=== PATIENT | female | born 1995 | race Caucasian/White ===

== ENCOUNTER → 2021-01-09 | Outpatient (CLI) | payer BC ==
[~2021-01-09] VITALS: Ht 22.9 cm; Wt 144.2 kg
[~2021-01-09] MED LIST: ACET500P24 PO; CEPH500B PO; CITA40TA14 PO; DICY20TA2 PO; ETHI1TAB18 PO; GABA300S PO; ONDA4TAB10 PO; ONDA4TAB4 PO; PANT40TA PO; PHEN12S PR; TAMS-1 PO
== END | disposition home or self-care (01) ==
LOC: DTH 15:58
PROVIDERS: ATTEND Surgery
DX: E11.9 Type 2 diabetes mellitus without complications (principal); E66.01 Morbid (severe) obesity due to excess calories; K76.9 Liver disease, unspecified
CPT/HCPCS: 97802

== ENCOUNTER → 2021-02-01 | Outpatient (CLI) | payer BC, OTHER | END | disposition home or self-care (01) | LOC: EDBD → EDUNIT# 15:00 → DTH 15:57 | PROVIDERS: ATTEND Surgery | DX: E66.01 Morbid (severe) obesity due to excess calories (principal) | CPT/HCPCS: 97803 ==

== ENCOUNTER 2021-02-15 08:31 | Day surgery (SDC) | payer BC, OTHER ==
[2021-02-15] VITALS (8 sets, daily range): BP systolic 105–132; BP diastolic 65–185
[~2021-02-15 08:31] MED LIST changes: -ACET500P24 PO; -CEPH500B PO; -DICY20TA2 PO; -GABA300S PO; -ONDA4TAB10 PO; -ONDA4TAB4 PO; -PANT40TA PO; -PHEN12S PR; +SODIUM CHLORIDE 0.9% 1000ML 1,000 ML IV ONE; -TAMS-1 PO
[2021-02-15] MEDS ORDERED: PROPOFOL 10 MG/ML 20ML VIAL IV ONE ×2 (11:01)
== END 2021-02-15 11:50 | disposition home or self-care (01) ==
LOC: ENDO 08:31 → DAH 08:31 → ENDO 11:50
PROVIDERS: ATTEND Surgery
DX: K21.9 Gastro-esophageal reflux disease without esophagitis (principal); F41.9 Anxiety disorder, unspecified; E66.01 Morbid (severe) obesity due to excess calories; F32.9 Major depressive disorder, single episode, unspecified; Z83.3 Family history of diabetes mellitus; Z82.49 Family history of ischemic heart disease and other diseases of the circulatory system; Z68.43 Body mass index [BMI] 50.0-59.9, adult; Z98.84 Bariatric surgery status
CPT/HCPCS: 43235; 81025; A4215; A4221; A4222; A4223; A4620; A4663; J2704 ×2; J7030

== ENCOUNTER → 2021-02-26 | Outpatient (CLI) | payer BC ==
[~2021-02-26] MED LIST changes: -SODIUM CHLORIDE 0.9% 1000ML 1,000 ML IV ONE
== END | disposition home or self-care (01) ==
LOC: EDBD → EDUNIT# 15:00 → DTH 15:55
PROVIDERS: ATTEND Surgery
DX: E66.01 Morbid (severe) obesity due to excess calories (principal)
CPT/HCPCS: 97803

== ENCOUNTER 2021-03-11 12:00 | Inpatient (IN) | payer OTHER ==
[~2021-03-11] VITALS: Ht 175.3 cm; Wt 142.0 kg
[2021-03-11 14:22] LABS: BASOPHILS % (AUTO) 0.7 % (0.0-5.0); EOSINOPHILS % (AUTO) 1.8 % (0.0-8.0); HEMATOCRIT 42.7 % (36-48); LYMPHOCYTES % (AUTO) 26.6 % (21.0-51.0); MEAN CORPUSCULAR HEMOGLOBIN 28.1 pg (27.0-33.0); MEAN CORPUSCULAR HGB CONC 32.1 g/dL (32.0-36.0); MEAN CORPUSCULAR VOLUME 87.5 fL (79-99); MONOCYTES % (AUTO) 7.6 % (3.0-13.0); PLATELET COUNT (AUTO) 320 K/uL (130-400); RED BLOOD CELL COUNT(AUTO) 4.88 MIL/uL (4.00-5.50); RED CELL DISTRIBUTION WIDTH 14.3 % (11.0-15.5); WHITE BLOOD COUNT (AUTO) 14.1 K/uL (4.8-10.8)
[2021-03-11 14:28] LABS: CREATININE 0.7 mg/dL (0.5-1.5); POTASSIUM 4.2 mmol/L (3.5-5.1)
[2021-03-11 14:31] LABS: INR 0.97 (0.85-1.15); PROTHROMBIN TIME 10.6 SEC (9.6-11.6)
[2021-03-11 14:33] LABS: PARTIAL THROMBOPLASTIN TIME 26.8 SEC (26.3-35.5)
[2021-03-15 13:57] VITALS: BP 134/78
[2021-03-16] MEDS: CEFAZOLIN SODIUM 1 GM VIAL IVP SCH (14:15)
[2021-03-17] MEDS: CEFAZOLIN SODIUM 1 GM VIAL IVP SCH (14:15)
[2021-03-18] VITALS (25 sets, daily range): BP systolic 130–157; BP diastolic 69–95
[2021-03-18] MEDS ORDERED: NACL 0.9% 1000ML 1,000 ML IV ONE (07:13)
[2021-03-18] MEDS: CEFAZOLIN SODIUM 1 GM VIAL IVP SCH ×3 (07:20→10:20)
[2021-03-18] MEDS ORDERED: PROPOFOL 10 MG/ML 20ML VIAL IV ONE (08:28)
[2021-03-18] MEDS ORDERED: ROCURONIUM 10MG/1ML SYR 10 MG/ML ML ONE (08:28)
[2021-03-18] MEDS ORDERED: LIDOCAINE PF 100MG/5ML (2%) SYRINGE 5ML ONE (08:28)
[2021-03-18] MEDS ORDERED: SUCCINYLCHOLINE CHLORIDE 20 MG/ML 10 ML VIAL ONE (08:28)
[2021-03-18] MEDS ORDERED: MIDAZOLAM HCL 1 MG/ML 2ML VIAL ONE (08:29)
[2021-03-18] MEDS ORDERED: DEXAMETHASONE SOD PHOSPHATE 10MG/ML 1ML VIAL ONE (08:41)
[2021-03-18] MEDS ORDERED: ONDANSETRON 4MG INJ ONE (08:41)
[2021-03-18] MEDS ORDERED: FENTANYL CITRATE PF 50 MCG/1 ML 2ML VIAL ONE (08:51)
[2021-03-18] MEDS ORDERED: SCOPOLAMINE HYDROBROMIDE 1 EACH ADH..PATCH TD ONE (08:54)
[2021-03-18] MEDS ORDERED: GLYCOPYRROLATE 1 MG/5 ML SYRINGE ONE (09:15)
[2021-03-18] MEDS ORDERED: NEOSTIGMINE 5MG/5ML SYR IV ONE (09:15)
[2021-03-18] MEDS ORDERED: APAP/CODEINE 120/12MG 5ML PO PRN (09:45)
[2021-03-18] MEDS ORDERED: MORPHINE 5 MG/ML VIAL (5MG OR GREATER DOSE) IVP PRN (09:45)
[2021-03-18] MEDS ORDERED: MORPHINE 4 MG SYG IVP PRN (09:45)
[2021-03-18] MEDS ORDERED: MEPERIDINE-PF 25 MG/ML SYG ONE ×2 (09:50→10:01)
[2021-03-18] MEDS: LACTATED RINGERS 1000ML 1,000 ML IV SCH ×2 (11:39→19:45)
[2021-03-18] MEDS: ONDANSETRON 4MG INJ IVP PRN (15:18)
[2021-03-18] MEDS: KETOROLAC 30MG VIAL (30MG/ML) IV PRN ×2 (16:11→22:22)
[2021-03-18] MEDS ORDERED: FAMOTIDINE 20MG VIAL IV ONE (19:30)
[2021-03-18] MEDS: FAMOTIDINE 20MG VIAL IV SCH (22:08)
[2021-03-18] MEDS: ENOXAPARIN SODIUM 30 MG/0.3 ML SQ SCH (22:09)
[2021-03-19] MEDS: LACTATED RINGERS 1000ML 1,000 ML IV SCH ×2 (01:45→09:46)
[2021-03-19 06:35] VITALS: BP 107/67
[2021-03-19 06:36] LABS: CREATININE 0.7 mg/dL (0.5-1.5); POTASSIUM 3.8 mmol/L (3.5-5.1)
[2021-03-19 06:44] LABS: BASOPHILS % (AUTO) 0.4 % (0.0-5.0); EOSINOPHILS % (AUTO) 0.2 % (0.0-8.0); HEMATOCRIT 37.3 % (36-48); LYMPHOCYTES % (AUTO) 24.4 % (21.0-51.0); MEAN CORPUSCULAR HEMOGLOBIN 27.7 pg (27.0-33.0); MEAN CORPUSCULAR HGB CONC 32.4 g/dL (32.0-36.0); MEAN CORPUSCULAR VOLUME 85.4 fL (79-99); MONOCYTES % (AUTO) 11.4 % (3.0-13.0); NEUTROPHILS % (AUTO) 63.3 % (40.0-77.0); PLATELET COUNT (AUTO) 307 K/uL (130-400); RED BLOOD CELL COUNT(AUTO) 4.37 MIL/uL (4.00-5.50); WHITE BLOOD COUNT (AUTO) 13.7 K/uL (4.8-10.8)
[2021-03-19 08:00] VITALS: BP 109/66
[2021-03-19] MEDS: FAMOTIDINE 20MG VIAL IV SCH (08:39)
[2021-03-19] MEDS: ENOXAPARIN SODIUM 30 MG/0.3 ML SQ SCH (08:45)
[2021-03-19 12:00] VITALS: BP 126/80
[2021-03-19] MEDS: CEFAZOLIN SODIUM 1 GM VIAL IVP SCH (13:59)
[2021-03-19] MEDS: ONDANSETRON 4MG INJ IVP PRN (13:59)
[2021-03-19] MEDS: KETOROLAC 30MG VIAL (30MG/ML) IV PRN (15:10)
[2021-03-19 16:00] VITALS: BP 133/82
[2021-03-19] MEDS ORDERED: ACET500P24 PO (17:51)
[2021-03-19] MEDS ORDERED: ONDA4TAB4 PO (17:52)
[2021-03-19] MEDS ORDERED: GABA300S PO (17:52)
[2021-03-19] MEDS ORDERED: PANT40TA PO (17:53)
== END 2021-03-19 18:14 | disposition home or self-care (01) | DRG 621 ==
LOC: DAHIP 03-18 06:39 → 4BH 03-18 10:20
PROVIDERS: ADMIT Surgery; ATTEND Surgery
PROC: 0DB64Z3 Excision of Stomach, Percutaneous Endoscopic Approach, Vertical (ICD-10-PCS; principal; 2021-03-18 08:24)
DX: E66.01 Morbid (severe) obesity due to excess calories (principal); K21.9 Gastro-esophageal reflux disease without esophagitis; E11.9 Type 2 diabetes mellitus without complications; K76.0 Fatty (change of) liver, not elsewhere classified; F41.9 Anxiety disorder, unspecified; F32.9 Major depressive disorder, single episode, unspecified; Z83.3 Family history of diabetes mellitus; Z82.49 Family history of ischemic heart disease and other diseases of the circulatory system; Z68.42 Body mass index [BMI] 45.0-49.9, adult
CPT/HCPCS: 36415; 80048; 82948; 84703; 85025; 85610; 85730; 86850; 86900; 86901; 87635; 94760; 97039; G0378; J0330; J0690; J1100; J1650; J1885; J2001; J2175; J2250; J2270; J2405; J2704; J2710; J3010; J3490; J7030; J7120

== ENCOUNTER 2021-04-17 16:13 | Emergency (ER) | payer BC, OTHER ==
[~2021-04-17] VITALS: Ht 175.3 cm; Wt 126.1 kg
[~2021-04-17 16:13] MED LIST changes: +ACET500P24 PO; +GABA300S PO; +ONDA4TAB4 PO; +PANT40TA PO
[2021-04-17 16:48] LABS: BASOPHILS % (AUTO) 0.7 % (0.0-5.0); EOSINOPHILS % (AUTO) 0.7 % (0.0-8.0); HEMATOCRIT 45.1 % (36-48); LYMPHOCYTES % (AUTO) 15.7 % (21.0-51.0); MEAN CORPUSCULAR HEMOGLOBIN 27.9 pg (27.0-33.0); MEAN CORPUSCULAR HGB CONC 33.5 g/dL (32.0-36.0); MEAN CORPUSCULAR VOLUME 83.2 fL (79-99); MONOCYTES % (AUTO) 11.8 % (3.0-13.0); NEUTROPHILS % (AUTO) 70.8 % (40.0-77.0); PLATELET COUNT (AUTO) 198 K/uL (130-400); RED BLOOD CELL COUNT(AUTO) 5.42 MIL/uL (4.00-5.50); RED CELL DISTRIBUTION WIDTH 14.6 % (11.0-15.5); WHITE BLOOD COUNT (AUTO) 11.9 K/uL (4.8-10.8)
[2021-04-17 16:50] VITALS: BP 126/89
[2021-04-17 17:09] LABS: CREATININE 1.1 mg/dL (0.5-1.5); POTASSIUM 3.1 mmol/L (3.5-5.1)
[2021-04-17 17:13] LABS: ALBUMIN 3.3 g/dL (3.5-5.0); BILIRUBIN,TOTAL 0.4 mg/dL (0.2-1.0); TOTAL PROTEIN, SERUM 7.1 g/dL (6.0-8.3)
[2021-04-17] MEDS ORDERED: ONDANSETRON 4MG INJ ONE (17:41)
[2021-04-17] MEDS ORDERED: HYDROMORPHONE 0.5 MG SYG (0.5MG/0.5ML) ONE (17:41)
[2021-04-17 18:15] LABS: APPEARANCE,URINE CLOUDY (CLEAR); BILIRUBIN,URINE MODERATE (NEGATIVE); COLOR,URINE YELLOW (YELLOW); GLUCOSE, URINE (UA) NEGATIVE (NEGATIVE); KETONES,URINE >=80 mg/dL (NEGATIVE); LEUKOCYTE ESTERASE ,URINE TRACE (NEGATIVE); NITRATE,URINE NEGATIVE (NEGATIVE); OCCULT BLOOD,URINE LARGE (NEGATIVE); PROTEIN,URINE 100 mg/dL (NEGATIVE)
[2021-04-17 18:17] LABS: HCG,QUAL RESULT NEGATIVE (NEGATIVE)
[2021-04-17 18:21] LABS: BACTERIA,URINE Few /HPF (None Seen); RBC,URINE 26-50 /HPF (0-1)
[2021-04-17 18:22] LABS: MUCUS,URINE Moderate LPF (None Seen); SQUAMOUS EPITHELIAL CELL,UR Few /HPF (0-2)
[2021-04-17] MEDS ORDERED: IOHEXOL-350 75 ML VIAL IV ONE (18:23)
[2021-04-17] MEDS ORDERED: HYDROMORPHONE 0.5 MG SYG (0.5MG/0.5ML) IVP ONE (19:00)
[2021-04-17] MEDS ORDERED: ONDANSETRON 4MG INJ IVP ONE (19:00)
[2021-04-17] MEDS ORDERED: [UNRECOGNIZED DRUG - OTHER] IV ONE (19:30)
[2021-04-17 19:48] VITALS: BP 119/71
[2021-04-17] MEDS ORDERED: CEFTRIAXONE 1G VIAL IVP ONE (20:30)
[2021-04-17] MEDS ORDERED: KETOROLAC 30MG VIAL (30MG/ML) IV ONE (20:30)
[2021-04-17] MEDS ORDERED: TAMS-1 PO (20:41)
[2021-04-17] MEDS ORDERED: CEPH500B PO (20:41)
[2021-04-17] MEDS ORDERED: ONDA4TAB10 PO (20:41)
[2021-04-17] MEDS ORDERED: DICY20TA2 PO (20:41)
[2021-04-17] MEDS ORDERED: PHEN12S PR (20:41)
[2021-04-17] MEDS ORDERED: METOCLOPRAMIDE 10 MG/2 ML VIAL IVP ONE (21:00)
[2021-04-17] MEDS ORDERED: TAMSULOSIN HCL 0.4 MG CAP.ER.24H PO ONE (21:00)
== END 2021-04-17 21:31 | disposition home or self-care (01) ==
LOC: EDH 16:13
DX: N39.0 Urinary tract infection, site not specified (principal); E86.9 Volume depletion, unspecified; N23 Unspecified renal colic; E66.01 Morbid (severe) obesity due to excess calories; Z68.41 Body mass index [BMI] 40.0-44.9, adult; Z79.1 Long term (current) use of non-steroidal anti-inflammatories (NSAID); Z79.899 Other long term (current) drug therapy; Z98.84 Bariatric surgery status
CPT/HCPCS: 36415; 74177; 80053; 81001; 81025; 82150; 83690; 85025; 93005; 96361; 96374; 96375; 96376; 99285; J0696; J1170 ×2; J1885; J2405 ×2; J2765; J7030; Q9967